=== PATIENT | female | born 1950 | race American Indian/Alaskan Native ===

== ENCOUNTER 2017-08-09 13:54 | Emergency (ER) | payer OTHER ==
[2017-08-09 13:55] VITALS: BMI 22.3
[2017-08-09 14:15] VITALS: O2SAT 100
[2017-08-09 14:47] LABS: RBC URINE 38 /hpf (0-3); URINE BILIRUBIN NEGATIVE (NEGATIVE); URINE BLOOD 3+ (NEGATIVE); URINE COLOR Yellow (YELLOW); URINE GLUCOSE (UA) NORMAL (Normal); URINE KETONE 1+ mg/dL (NEGATIVE); URINE LEUKOCYTE ESTERASE NEG Leu/uL (Negative); URINE PROTEIN NEGATIVE (NEGATIVE); URINE UROBILINOGEN NORMAL mg/dL (0.2-1.0); WBC URINE 1 /hpf (0-5)
[2017-08-09] MEDS ORDERED: Lactated Ringer's 500 ML IV ONE ×2 (15:23→15:38)
[2017-08-09] MEDS ORDERED: Lactated Ringer's 1,000 ML ONE (15:37)
[2017-08-09 15:55] LABS: HEMATOCRIT 33.9 % (34.0-47.0); MEAN CORPUSCULAR HEMOGLOBIN 27.5 pg (27.0-31.0); MEAN CORPUSCULAR HGB CONC 33.5 g/dL (33.0-37.0); MEAN PLATELET VOLUME 8.8 fL (7.2-11.7); RED CELL DISTRIBUTION WIDTH 14.5 % (11.5-14.5)
--- NOTE | 2017-08-09 16:08 | C.PDOC ---
History Of Present Illness 66 year old female presents to the ED for evaluation of generalized body aches, weakness and nausea which began 2 days ago. Patient is a [employer] employee and reports contact with sick patients. Patient denies cough, shortness of breath, abdominal pain, and diarrhea at this time. Time Seen by Provider: 08/09/17 14:19 Chief Complaint (Nursing): Flu-like Symptoms History Per: Patient History/Exam Limitations: no limitations Onset/Duration Of Symptoms: Days (2) Current Symptoms Are (Timing): Still Present Sick Contacts (Context): None Associated Symptoms: Nausea Additional History Per: Patient Past Medical History Reviewed: Historical Data, Nursing Documentation, Vital Signs Vital Signs: Last Vital Signs Temp 98.6 F 08/09/17 16:48 Pulse 72 08/09/17 16:48 Resp 18 08/09/17 16:48 BP 130/70 08/09/17 16:48 Pulse Ox 100 08/09/17 19:13 - Medical History PMH: Hypercholesterolemia, Hyperlipidemia, Osteoporosis Denies: Chronic Kidney Disease Surgical History: No Surg Hx Family History: States: Unknown Family Hx - Social History Hx Alcohol Use: No Hx Substance Use: No Review Of Systems Constitutional: Positive for: Weakness Respiratory: Negative for: Cough, Shortness of Breath Gastrointestinal: Positive for: Nausea. Negative for: Abdominal Pain, Diarrhea Musculoskeletal: Positive for: Other (generalized body aches ) Physical Exam - Physical Exam Appears: Non-toxic, No Acute Distress Skin: Normal Color, Warm, Dry Head: Atraumatic, Normacephalic Eye(s): bilateral: Normal Inspection Ear(s): Bilateral: Normal Nose: Normal, No Discharge Oral Mucosa: Moist Throat: Normal, No Erythema, No Exudate Neck: Supple Chest: Symmetrical, No Deformity, No Tenderness Cardiovascular: Rhythm Regular Respiratory: Normal Breath Sounds, No Rales, No Rhonchi, No Wheezing Gastrointestinal/Abdominal: Soft, No Tenderness, No Guarding, No Rebound Extremity: Normal ROM, Capillary Refill (less than 2 seconds ) Neurological/Psych: Oriented x3, Normal Speech, Normal Cognition Gait: Steady ED Course And Treatment - Laboratory Results Result Diagrams: 08/09/17 15:38 08/09/17 15:38 O2 Sat by Pulse Oximetry: 100 (on RA) Pulse Ox Interpretation: Normal Medical Decision Making Medical Decision Making: patient with flu like symptoms of malaise, generalized body aches, chills nausea UA and influenza ordered and reviewed which was negative. UA shows ketones and blood 1530 patient feels unchanged, stating she still has chills and also feels weak. Will order labs and give IV fluids as urine shows ketones 1630 Patient is now feeling better. Labs show mild dehydration. Patient has no fever and stable vital signs. Recommend rest, oral fluids and to follow up with PCP Disposition Counseled Patient/Family Regarding: Studies Performed, Diagnosis, Need For Followup - Disposition Referrals: Lola Childs MD [Medical Doctor] - Disposition: HOME/ ROUTINE Disposition Time: 16:31 Condition: IMPROVED Additional Instructions: You have viral infection. Take Tylenol or Motrin alternating every 4-6 hours for Fever 100.4F or higher. Rest and drink plenty of fluids Instructions: Dehydration (ED), Viral Syndrome (ED) Forms: [facility] (Belgian), Work Excuse - POA Present On Arrival: None - Clinical Impression Clinical Impression: Viral syndrome - PA / APPOINTMENT SETTER / Resident Statement MD/DO has reviewed & agrees with the documentation as recorded. - Scribe Statement The provider has reviewed the documentation as recorded by the Scribe (Alyssa Williamson) All medical record entries made by the Scribe were at my direction and personally dictated by me. I have reviewed the chart and agree that the record accurately reflects my personal performance of the history, physical exam, medical decision making, and the department course for this patient. I have also personally directed, reviewed, and agree with the discharge instructions and disposition.
[2017-08-09 16:12] LABS: ALB/GLOB RATIO 1.1 (1.0-2.1); ALKALINE PHOSPHATASE 39 U/L (38-126); ALT/SGPT 43 U/L (9-52); AST/SGOT 35 U/L (14-36); BILIRUBIN,TOTAL 0.9 mg/dL (0.2-1.3); BLOOD UREA NITROGEN 7 mg/dL (7-17); CALCIUM 8.8 mg/dl (8.6-10.4); CARBON DIOXIDE 26 mmol/L (22-30); CHLORIDE 97 mmol/L (98-107); GFR AFRICAN-AMERICAN > 60; GLUCOSE,RANDOM 76 mg/dL (65-105); POTASSIUM 3.7 mmol/L (3.6-5.2); SODIUM 130 mmol/L (132-148); TOTAL PROTEIN 7.6 g/dL (6.3-8.3)
[2017-08-09 16:49] VITALS: BP 130/70; PULSE 72; RESP 18; TEMP 98.6
== END 2017-08-09 17:22 | disposition home or self-care (01) ==
LOC: C.ER 13:54
DX: B34.9 Viral infection, unspecified (principal)
CPT/HCPCS: 80053; 81001; 85027; 87804; 96360; 99283; J7120

== ENCOUNTER 2017-08-13 14:49 | Emergency (ER) | payer OTHER ==
[2017-08-13 14:50] VITALS: BMI 22.3
[2017-08-13 15:14] VITALS: RESP 18
[2017-08-13] MEDS ORDERED: Lactated Ringer's 1,000 ML IV ONE (15:20)
--- NOTE | 2017-08-13 15:27 | C.PDOC ---
History Of Present Illness <WagonerElizabet Aníbal - Last Filed: 08/13/17 18:54> <Gerry Keen - Last Filed: 08/13/17 20:44> 66 y/o female presents to ED with complaints of worsening "gassy and burning" epigastric abdominal pain with associated nausea and vomiting. Patient states last night after eating dinner she vomited 1 time. Patient was seen in ED recently for flu-like symptoms. She went to see her PCP Dr Childs who sent her back to ED for evalaution. Patient denies fever, diarrhea, dysuria, back pain. ( Elizabet Wagoner) History Per: Patient History/Exam Limitations: no limitations Onset/Duration Of Symptoms: Days, Worse Since (yesterday) Current Symptoms Are (Timing): Still Present Location Of Pain/Discomfort: Epigastric <Elizabet Wagoner Aníbal - Last Filed: 08/13/17 18:54> <Gerry Keen - Last Filed: 08/13/17 20:44> Time Seen by Provider: 08/13/17 15:10 Chief Complaint (Nursing): Abdominal Pain Past Medical History Reviewed: Historical Data, Nursing Documentation, Vital Signs - Medical History PMH: Hypercholesterolemia, Hyperlipidemia, Osteoporosis Surgical History: No Surg Hx Family History: States: No Known Family Hx - Social History Hx Alcohol Use: No Hx Substance Use: No <WagonerElizabet Aníbal - Last Filed: 08/13/17 18:54> Vital Signs: Last Vital Signs Temp 98.7 F 08/13/17 17:51 Pulse 70 08/13/17 17:51 Resp 18 08/13/17 17:51 BP 152/85 H 08/13/17 17:51 Pulse Ox 100 08/13/17 18:55 Review Of Systems Constitutional: Negative for: Fever, Chills Cardiovascular: Negative for: Chest Pain Gastrointestinal: Positive for: Nausea, Vomiting, Abdominal Pain. Negative for : Diarrhea Genitourinary: Negative for: Dysuria Musculoskeletal: Negative for: Back Pain Skin: Negative for: Rash <WagonerElizabet key Aníbal - Last Filed: 08/13/17 18:54> Physical Exam - Physical Exam Appears: Non-toxic, No Acute Distress Skin: Normal Color, Warm, Dry, No Rash Head: Atraumatic, Normacephalic Eye(s): bilateral: Normal Inspection Nose: Normal Oral Mucosa: Moist, Dry Neck: Normal ROM, Supple Chest: Symmetrical Cardiovascular: Rhythm Regular Respiratory: Normal Breath Sounds, No Accessory Muscle Use, No Rales, No Rhonchi , No Wheezing Gastrointestinal/Abdominal: Soft, Tenderness (Epigastric), No Mass, No Distention, No Guarding, No Ascites Extremity: Bilateral: Atraumatic, Normal Color And Temperature, Normal ROM Neurological/Psych: Oriented x3, Normal Speech Gait: Steady <Elizabet Wagoner - Last Filed: 08/13/17 18:54> ED Course And Treatment - Laboratory Results Result Diagrams: 08/13/17 15:36 08/13/17 15:36 Lab Interpretation: Abnormal O2 Sat by Pulse Oximetry: 100 (RA) Pulse Ox Interpretation: Normal <Elizabet Wagoner - Last Filed: 08/13/17 18:54> - Laboratory Results Result Diagrams: 08/13/17 15:36 08/13/17 15:36 <Gerry Keen - Last Filed: 08/13/17 20:44> Medical Decision Making <Elizabet Wagoner - Last Filed: 08/13/17 18:54> <Gerry Keen - Last Filed: 08/13/17 20:44> Medical Decision Making: Impression: Abd pain Plan: CT scan abdomen, Blood work Progress: CBC reviewed and no leukocytosis. 1800 CMP is still pending, sodium is low; however there is problem with lab machine and sodium/electrolytes may not be accurate? 1899 Case signed out to Dr Keen (Elizabet Wagoner) Disposition - Disposition Disposition Time: 18:54 <Elizabet Wagoner Last Filed: 08/13/17 18:54> Discussed With : Lola Childs Comment: to see PMD in office in AM. Doctor Will See Patient In The: Office Counseled Patient/Family Regarding: Diagnosis - POA Present On Arrival: None <Gerry Keen Last Filed: 08/13/17 20:44> - Disposition Referrals: Lola Childs MD [Medical Doctor] - Condition: STABLE Prescriptions: Famotidine [Pepcid] 20 mg PO BID #30 tab Ondansetron ODT [Zofran ODT] 1 odt PO BID PRN #6 odt PRN Reason: Nausea/Vomiting Instructions: Gastritis (DC), Diet for Ulcers and Gastritis (GEN) - Clinical Impression Clinical Impression: Abdominal pain, Vomiting - PA / COLD PRESS OPERATOR / Resident Statement MD/DO has reviewed & agrees with the documentation as recorded. - Scribe Statement The provider has reviewed the documentation as recorded by the Scribe <Elizabet Wagoner - Last Filed: 08/13/17 18:54> <Gerry Keen - Last Filed: 08/13/17 20:44> - Scribe Statement Brisa Barnes All medical record entries made by the Scribe were at my direction and personally dictated by me. I have reviewed the chart and agree that the record accurately reflects my personal performance of the history, physical exam, medical decision making, and the department course for this patient. I have also personally directed, reviewed, and agree with the discharge instructions and disposition. (Elizabet Wagoner) Physician Patient Turnover Patient Signed Over To: Gerry Keen Handoff Comments: pending CT <Elizabet Wagoner - Last Filed: 08/13/17 18:54>
[2017-08-13 15:40] LABS: BASO % 0.5 % (0.0-2.0); HEMATOCRIT 36.3 % (34.0-47.0); LYMPH # 1.3 K/uL (1.0-4.3); LYMPH % 39.2 % (20.0-40.0); MEAN CELL VOLUME 81.5 fL (81.0-99.0); MEAN CORPUSCULAR HEMOGLOBIN 27.8 pg (27.0-31.0); MEAN CORPUSCULAR HGB CONC 34.1 g/dL (33.0-37.0); MEAN PLATELET VOLUME 8.7 fL (7.2-11.7); MONO # 0.2 K/uL (0.0-0.8); MONO % 7.4 % (0.0-10.0); NRBC % 0.1 % (0.0-2.0); RED CELL DISTRIBUTION WIDTH 14.1 % (11.5-14.5); WHITE BLOOD COUNT 3.3 K/uL (4.8-10.8)
[2017-08-13 16:20] LABS: RBC URINE 14 /hpf (0-3); TRANSITIONAL EPITHIAL < 1 /hpf (0-3); URINE BACTERIA RARE (<OCC); URINE BILIRUBIN NEGATIVE (NEGATIVE); URINE BLOOD 3+ (NEGATIVE); URINE COLOR Yellow (YELLOW); URINE GLUCOSE (UA) NORMAL (Normal); URINE KETONE 1+ mg/dL (NEGATIVE); URINE LEUKOCYTE ESTERASE NEG Leu/uL (Negative); URINE PROTEIN NEGATIVE (NEGATIVE); URINE UROBILINOGEN NORMAL mg/dL (0.2-1.0); WBC URINE 1 /hpf (0-5)
[2017-08-13 18:12] LABS: ALB/GLOB RATIO 1.5 (1.0-2.1); ALKALINE PHOSPHATASE 45 U/L (38-126); ALT/SGPT 34 U/L (9-52); AST/SGOT 32 U/L (14-36); BILIRUBIN,TOTAL 1.1 mg/dL (0.2-1.3); BLOOD UREA NITROGEN 4 mg/dL (7-17); CALCIUM 8.6 mg/dl (8.6-10.4); GFR AFRICAN-AMERICAN > 60; GLUCOSE,RANDOM 85 mg/dL (65-105); TOTAL PROTEIN 7.3 g/dL (6.3-8.3)
[2017-08-13] MEDS ORDERED: Potassium Chloride 20 mEq ER Tab PO STA (18:25)
[2017-08-13] MEDS ORDERED: Iodixanol 320 mg/ml 150 ml Bottle IV ONE (18:50)
[2017-08-13] MEDS ORDERED: Potassium Chloride 20 mEq ER Tab PO ONE (19:09)
[2017-08-13 19:15] LABS: CARBON DIOXIDE 22 mmol/L (22-30); CHLORIDE 89 mmol/L (98-107); POTASSIUM 3.1 mmol/L (3.6-5.2); SODIUM 124 mmol/L (132-148)
--- NOTE | 2017-08-13 20:23 | CT ---
EXAM: CT Abdomen and Pelvis With Intravenous Contrast EXAM DATE/TIME: 08/13/2017 3:19 PM CLINICAL HISTORY: 66 years old, female; Pain; Abdominal pain; Additional info: Epigastric abd pain with nausea TECHNIQUE: Axial computed tomography images of the abdomen and pelvis with intravenous contrast. All CT scans at this facility use one or more dose reduction techniques, viz.: automated exposure control; ma/kV adjustment per patient size (including targeted exams where dose is matched to indication; i.e. head); or iterative reconstruction technique. Coronal and sagittal reformatted images were created and reviewed. CONTRAST: 100 mL of VISI administered intravenously. COMPARISON: There are no prior studies for comparison. FINDINGS: Lower thorax: Heart size is normal. There is a small hiatal hernia. There is scarring and nodular pleural thickening at the lung bases. ABDOMEN: Liver: There is fatty infiltration of the liver. Gallbladder and bile ducts: Gallbladder is partially distended. There is prominence of the common duct. Pancreas: Pancreas is mildly atrophic. Spleen: unremarkable Adrenals: unremarkable Kidneys and ureters: There are bilateral renal cysts.Kidneys and ureters are otherwise unremarkable. Stomach and bowel: Stomach is incompletely distended which accentuates the gastric wall. There is mild vascular enhancement of the gastric wall. Rotation is normal. There is no small bowel obstruction. Ileocecal region is unremarkable. Appendix and terminal ileum are unremarkable.Colon is incompletely distended which limits evaluation. There is scattered diverticulosis greatest in the sigmoid. Appendix: See stomach and bowel PELVIS: Bladder: unremarkable Reproductive: Uterus and adnexal structures are unremarkable. Uterus and left adnexa are unremarkable. There is a partially calcified 1.4 x 1.6 cm right adnexal mass. ABDOMEN and PELVIS: Intraperitoneal space: There is no free air or free fluid. There is no free air or free fluid. Bones/joints: There are degenerative changes in the osseus structures. Soft tissues: There is a very small fat containing umbilical hernia. Vasculature: There are vascular calcifications. Lymph nodes: There is no pathologic adenopathy. IMPRESSION: Fatty liver, no acute solid visceral abnormality; possible gastritis, no bowel obstruction, no CT findings of appendicitis or diverticulitis
[2017-08-13 20:59] VITALS: BP 142/79; PULSE 84; TEMP 98.6; O2SAT 98
== END 2017-08-13 20:59 | disposition home or self-care (01) ==
LOC: C.ER 14:49
DX: R10.13 Epigastric pain (principal); R11.10 Vomiting, unspecified; E87.6 Hypokalemia
CPT/HCPCS: 74177; 80053; 81001; 83690; 85025; 87086; 96361; 96374; 96375; 99285; J1885; J2405; J7120; Q9967

== ENCOUNTER 2018-11-05 11:33 | Outpatient (CLI) | payer MEDICARE | END 2018-11-05 11:34 | disposition home or self-care (01) | LOC: C.LAB 11:33 | DX: E78.2 Mixed hyperlipidemia (principal); R53.82 Chronic fatigue, unspecified ==

== ENCOUNTER 2019-02-01 11:00 | Outpatient (CLI) | payer MEDICARE | END 2019-02-01 11:01 | disposition home or self-care (01) | LOC: C.LAB 11:00 | DX: E78.2 Mixed hyperlipidemia (principal); R73.9 Hyperglycemia, unspecified ==